=== PATIENT | male | born 1965 | race Caucasian/White ===

== ENCOUNTER 2018-02-22 15:40 | Emergency (ER) | payer MEDICARE ==
[2016-02-16 08:35] VITALS: BMI 30.5
[~2018-02-22 15:40] MED LIST: HYDROCODONE-APA1 TAB PO; NEURONTIN 300300 MG PO; PRILOSEC20 MG PO; XANAX1 MG PO
== END 2018-02-22 17:48 | disposition home or self-care (01) ==
LOC: D.ER 15:40
DX: L03.115 Cellulitis of right lower limb (principal); K21.9 Gastro-esophageal reflux disease without esophagitis